=== PATIENT | male | born 1975 | race Caucasian/White ===

== ENCOUNTER 2016-11-29 13:49 | Inpatient (IN) | payer OTHER ==
[~2016-11-29] VITALS: Ht 182.9 cm; Wt 65.5 kg
--- NOTE | ~2016-11-29 | CON ---
[place], [place] REPORT OF CONSULTATION NAME: TATIANA EDGAR UNIT #: [id number] ROOM: [place] [address] DOCTOR: STEVAN COBB ED.D (XIN) BIRTHDATE: [birth year] DOS: 12/02/2016 HISTORY OF PRESENT ILLNESS: The patient is a 41-year-old male referred by the hospitalist for an evaluation following suicidal thoughts. At the present time, this patient is in the intensive care unit at [facility]. This patient is single and has no children. His mother is living and his father of a heart attack. He is presently applying for disability due to his severe diabetes and neuropathy. His family physician is Dr. Fritz in [place], [place]. His medical history is pertinent for history of alcohol dependence, diabetes mellitus, peripheral neuropathy. His medications include Protonix, Neurontin, trazodone, Ultram, Protonix, Carafate, Creon, Lexapro, gabapentin, and metformin, and he does have an insulin pump. This patient states he has a history of alcohol dependence and also smokes one-half pack of cigarettes per day. He also has a diagnosis of bipolar disorder. He was awake, alert and oriented in all 3 spheres. He adamantly denies any suicidal ideation or plan and states he would do nothing to harm himself. He has been a patient in inpatient alcohol rehabilitation one time and also he was at [facility] in [place], [place] when he became severely agitated. This was quite some time ago. He does follow with [facility] [place], [place]. He states he wants a counselor at this point in time. He formerly followed with Kaushik Chang at [facility] who dealt with substance abuse issues. In my opinion, this patient is no longer suicidal. He adamantly denied any suicidal ideation or plan and states that he is going to follow up with counseling and also take his psych meds. DIAGNOSES: 1. Bipolar 2 disorder. 2. Alcohol dependence. Thank you very much for this consult. STEVAN COBB ED.D CM:CONSTR:REPORT OF CONSULTATION [id number] 12/03/16 0108 interface
[2016-11-29 13:59] VITALS: BP 128/88
[2016-11-29 14:30] LABS: BASO # 0.1 10*3/uL (0.0-0.1); BASO % 0.8 % (0.0-1.0); EOS # 0.3 10*3/uL (0.0-0.4); EOS % 5.6 % (1.0-4.0); HEMATOCRIT 41.6 % (42.0-52.0); HEMOGLOBIN 14.3 g/dl (14.0-18.0); LYMPH # 3.4 10*3/uL (1.3-4.4); MEAN CELL VOLUME 95.2 fl (80.0-94.0); MEAN CORPUSCULAR HGB 32.7 pg (27.0-31.0); MEAN CORPUSCULAR HGB CONC 34.4 g/dl (33.0-37.0); MEAN PLATELET VOLUME 9.7 fl (9.6-12.3); MONO # 0.3 10*3/uL (0.1-1.0); MONO % 4.6 % (3.0-9.0); NEUT % 32.7 % (47.0-73.0); PLATELET COUNT AUTOMATED 148 10*3/uL (130-400); RED BLOOD COUNT 4.37 10*6/uL (4.50-5.90); RED CELL DISTRI WIDTH 13.3 % (0-14.5); WHITE BLOOD COUNT 6.1 10*3/uL (4.8-10.8)
[2016-11-29 14:41] LABS: PROTHROMBIN TIME 10.3 SECONDS (9.0-12.4)
[2016-11-29 14:47] LABS: BILIRUBIN NEGATIVE (NEGATIVE); BLOOD NEGATIVE (NEGATIVE); CLARITY CLEAR (CLEAR); COLOR YELLOW (YELLOW); GLUCOSE NEGATIVE (NEGATIVE); KETONE NEGATIVE (NEGATIVE); LEUKO ESTERASE NEGATIVE (NEGATIVE); NITRITE NEGATIVE (NEGATIVE); PROTEIN NEGATIVE (NEGATIVE); SPECIFIC GRAVITY <= 1.005 (1.005-1.030); UROBILINOGEN 0.2 E.U./dl (0.2-1.0)
[2016-11-29 14:48] LABS: ALBUMIN 4.4 gm/dl (3.1-4.5); ALKALINE PHOSPHATASE 160 U/L (45-117); BILIRUBIN, TOTAL 0.2 mg/dl (0.2-1.0); BUN 9 mg/dl (7-24); CARBON DIOXIDE 28 mmol/L (21-32); CHLORIDE 110 mmol/L (98-107); CKMB 2.8 ng/ml (0.5-3.6); CPK 217 U/L (39-308); EST GLOM FILT AFRICAN AMERICAN > 60 ml/min; GLUCOSE 135 mg/dL (65-99); MAGNESIUM 1.7 mg/dL (1.5-2.1); POTASSIUM 3.9 mmol/L (3.5-5.1); SGOT/AST 181 IU/L (3-35); SGPT/ALT 164 U/L (12-78); SODIUM 145 mmol/L (136-145); TOTAL PROTEIN 8.4 gm/dL (6.4-8.2)
[2016-11-29 14:50] LABS: C-REACTIVE PROTEIN < 0.29 MG/DL (0-0.3); TROPONIN I < 0.015 ng/ml (<0.045)
[2016-11-29 14:54] LABS: URINE REFLEX COMMENT NO (NO); WBC 0-2 wbc/hpf (0-5)
[2016-11-29 14:57] LABS: URINE AMPHETAMINES < 1000 (1000ng/ml); URINE BARBITURATES < 200 (200ng/ml); URINE COCAINE < 300 (300ng/ml)
[2016-11-29 17:51] VITALS: BP 116/66
[2016-11-30 00:10] VITALS: BP 141/90
[2016-11-30 08:04] VITALS: BP 129/49
[2016-11-30 12:16] LABS: VENOUS BLOOD GAS O2 SAT 65.4 % (40-85); VENOUS PH 7.381 (7.32-7.43)
[2016-11-30 12:28] LABS: BUN 12 mg/dl (7-24); CARBON DIOXIDE 31 mmol/L (21-32); CHLORIDE 95 mmol/L (98-107); EST GLOM FILT AFRICAN AMERICAN > 60 ml/min; GLUCOSE 418 mg/dL (65-99); POTASSIUM 3.9 mmol/L (3.5-5.1); SODIUM 135 mmol/L (136-145)
[2016-11-30] MEDS ORDERED: CARAFATE1 G1 PO (17:56)
[2016-11-30] MEDS ORDERED: CHOLESTYRAM4 GM/9 GM PO (17:57)
[2016-11-30] MEDS ORDERED: CYMBALTA30 MG PO (17:57)
[2016-11-30] MEDS ORDERED: LEXAPRO20 MG PO (17:57)
[2016-11-30] MEDS ORDERED: CREON 60000 U-11 ECC PO (17:58)
[2016-11-30] MEDS ORDERED: METFORMIN500 MG PO (17:58)
[2016-11-30] MEDS ORDERED: METOCLOPRAMIDE5 MG PO (17:59)
[2016-11-30] MEDS ORDERED: PROTONIX40 MG PO (17:59)
[2016-11-30] MEDS ORDERED: TRAMADOL HCL50 MG PO (17:59)
[2016-11-30] MEDS ORDERED: TRIMETHOBENZAM300 MG PO (18:00)
[2016-11-30] MEDS ORDERED: GABAPENTIN400 MG PO (18:01)
[2016-11-30] MEDS ORDERED: GABAPENTIN TAB600 MG PO (18:01)
[2016-11-30] MEDS ORDERED: TRAZODONE50 MG PO (18:01)
[2016-11-30 18:03] VITALS: BP 157/78
[2016-11-30] MEDS ORDERED: CREON DR 36,001 EACH PO (18:27)
[2016-11-30] MEDS ORDERED: TIZANIDINE HCL4 MG PO (18:42)
[2016-11-30 21:21] VITALS: BP 146/82
[2016-11-30 23:25] VITALS: BP 132/76
[2016-12-01 02:25] VITALS: BP 134/64
[2016-12-01 05:40] VITALS: BP 150/90
[2016-12-01] MEDS ORDERED: NEURONTIN300 MG PO (06:16)
[2016-12-01] MEDS ORDERED: CREON 120000 U-1 ECC PO (06:24)
[2016-12-01 08:00] VITALS: BP 158/98
[2016-12-01 12:00] VITALS: BP 133/90
[2016-12-01 16:00] VITALS: BP 142/79
[2016-12-01 20:00] VITALS: BP 147/86
[2016-12-02] VITALS: BP 157/76
[2016-12-02 04:00] VITALS: BP 108/63
[2016-12-02 06:05] LABS: BUN 9 mg/dl (7-24); CARBON DIOXIDE 31 mmol/L (21-32); CHLORIDE 97 mmol/L (98-107); EST GLOM FILT AFRICAN AMERICAN > 60 ml/min; GLUCOSE 204 mg/dL (65-99); POTASSIUM 3.8 mmol/L (3.5-5.1); SODIUM 133 mmol/L (136-145)
[2016-12-02 08:00] VITALS: BP 110/62
== END 2016-12-02 12:41 | disposition home or self-care (01) | DRG 885 ==
LOC: ED 13:49 → EDBD 13:52 → EDHOLD 12-01 04:22 → ICCU 12-01 04:22
PROVIDERS: Emergency Medicine; Hospitalist
DX: F31.81 Bipolar II disorder (principal); E11.42 Type 2 diabetes mellitus with diabetic polyneuropathy; E11.65 Type 2 diabetes mellitus with hyperglycemia; E87.1 Hypo-osmolality and hyponatremia; K86.1 Other chronic pancreatitis; E83.119 Hemochromatosis, unspecified; F17.210 Nicotine dependence, cigarettes, uncomplicated; G25.81 Restless legs syndrome; F10.20 Alcohol dependence, uncomplicated; Z79.899 Other long term (current) drug therapy; Z88.8 Allergy status to other drugs, medicaments and biological substances; Z82.61 Family history of arthritis; Z82.49 Family history of ischemic heart disease and other diseases of the circulatory system; Z71.6 Tobacco abuse counseling; Z79.4 Long term (current) use of insulin